=== PATIENT | female | born 1990 | race Caucasian/White ===

== ENCOUNTER 2018-01-22 06:43 | Inpatient (IN) ==
[2018-01-24] MEDS ORDERED: CALCIUM CARBONATE Chewable 500mg TABLET PO PRN (17:50)
[2018-01-24] MEDS ORDERED: ACETAMINOPHEN 500 MG TABLET PO PRN (17:50)
[2018-01-24] MEDS ORDERED: METHYLERGONOVINE 0.2 MG/ML INJECTION IM PRN (17:50)
[2018-01-24] MEDS ORDERED: CARBOPROST 250 MCG/ML INJECTION IM PRN (17:50)
[2018-01-24] MEDS ORDERED: LIDOCAINE 1% (10mg/ml) 2mL INJ PF SDV ID PRN (17:50)
[2018-01-24] MEDS ORDERED: MAG-AL + SIM ORAL LIQUID 30ml PO PRN (17:50)
[2018-01-24] MEDS ORDERED: ZOLPIDEM 5 MG TABLET PO PRN ×2 (17:52→18:48)
[2018-01-24] MEDS ORDERED: SALINE FLUSH 10ml SYRINGE IV PRN (17:52)
[2018-01-24] MEDS ORDERED: HYDROCODONE/APAP 5mg/325mg TABLET PO PRN ×2 (17:52→18:48)
[2018-01-24 20:35] VITALS: BMI 31.2
[2018-01-24] MEDS ORDERED: DiphenhydrAMINE 25 MG CAPSULE PO PRN (23:40)
[2018-01-25] MEDS ORDERED: OXYTOCIN DRIP 30 UNIT/500 ML ML IV PRN ×2 (02:44→13:36)
[2018-01-25] MEDS: LR 1,000 ML IV PRN ×2 (05:42→08:26)
[2018-01-25] MEDS ORDERED: D5LR 1,000 ML IV PRN (06:00)
--- NOTE | 2018-01-25 07:44 | Anesthesia Preoperative Report ---
Anesthesia Epidural/Spinal Rec - Date and Time Date: 01/25/18 Procedure: Labor Epidural Plan: Epidural - Vital Signs Vital Signs: Temperature 98 F 01/24/18 20:11 Pulse Rate 82 01/24/18 20:11 Blood Pressure 110/72 01/24/18 20:11 Pulse Oximetry 98 01/24/18 20:11 NPO since: 01/25/16 2400 /Para: P:0 Height and Weight: 65 inch 80 kg - Medictaions & Allergies Inpatient Medications: Current Medications Acetaminophen (Tylenol) 500 - 1,000 mg PO Q4H PRN PRN Reason: Pain Hydrocodone Bitart/Acetaminophen ([place] 5/325) 1 - 2 tab PO Q4H PRN PRN Reason: Pain Hydrocodone Bitart/Acetaminophen ([place] 5/325) 1 - 2 tab PO Q4H PRN PRN Reason: Pain Al Hydroxide/Mg Hydroxide (Maalox Plus) 30 ml PO Q3H PRN PRN Reason: Indigestion Calcium Carbonate (Tums) 500 - 1,000 mg PO Q2H PRN PRN Reason: Indigestion Carboprost Tromethamine (Hemabate) 250 mcg IM O PRN PRN Reason: .Downtime Diphenhydramine HCl (Benadryl) 25 - 50 mg PO HS PRN PRN Reason: Itching Last Admin: 01/24/18 23:42 Dose: 50 mg Lactated Ringer's (Lactated Ringers) 1,000 mls @ 999 mls/hr IV .Q1H1M PRN Last Admin: 01/25/18 05:42 Dose: 999 mls/hr Dextrose/Lactated Ringer's (Dextrose 5%-Lactated Ringers) 1,000 mls @ 125 mls/ hr IV .Q8H PRN PRN Reason: Labor Last Admin: 01/25/18 05:41 Dose: 125 mls/hr Oxytocin (Pitocin Drip) 30 unit in 500 mls @ 2 mls/hr IV .Q24H PRN; Protocol PRN Reason: Induction/Augmentation Last Admin: 01/25/18 05:40 Dose: 2 mls/hr Lidocaine HCl (Xylocaine-Mpf 1% Vial) 0.2 mg ID O PRN PRN Reason: IV Start Methylergonovine Maleate (Methergine) 0.2 mg IM O PRN Misoprostol (Cytotec) 800 mcg RI ONCE PRN Sodium Chloride (Iv Flush) 10 - 80 ml IV PRN PRN PRN Reason: Flushing Zolpidem Tartrate (Ambien) 5 mg PO O PRN PRN Reason: Insomnia Zolpidem Tartrate (Ambien) 5 mg PO O PRN PRN Reason: Insomnia Allergies/Adverse Reactions: Allergies Allergy/AdvReac Type Severity Reaction Status Date / Time No Known Allergies Allergy Verified 12/26/17 15:26 - Home Medications Home Medications: Home Medications Medication Instructions Recorded Confirmed Type Vitamins 12/26/17 History Zyrtec DAILY 12/26/17 History - Medical History Respiratory: Reports: Other Gastrointestional: Reports: Gastroesophageal Reflux Disease Other History: Reports: Now - Surgical History HEENT Surgeries: Reports: Other (wisdom teeth ) Surgical History: wisdom teeth Anesthesia Reactions: None Hx Family Anesthesia Reaction: No History of Motion Sickness: No - Social History Smoking Status: Never smoker Substance Use Type: does not use Alcohol Intake Frequency: does not drink - Pertinent Findings Lab Data: CBC and BMP 01/24/18 18:02 - Physical Exam Respiratory Exam: lungs clear Cardiovascular Exam: regular rate and rhythm - Airway Assessment Mallampati Score: II TMD: 2 Fingerbreadths Neck Extension: good Overall Assessment: no airway concerns - ASA ASA Score: 1 - Discussion Discussion: Discussed risks/options/alternatives of anesthesia and questions answered. Patient consents. Nursing pain assessment noted. Anesthesia Discussion: spouse (discussed risks and benefits of epidural placement. pt agrees to proceed) Attestation Statement: Prior to the delivery of any anesthetic medication, I examined the patient, developed the plan, obtained the patient's consent and discussed the risk and benefits of the procedure with the patient/guardian.
[2018-01-25] MEDS ORDERED: ROPIVACAINE 1% 10MG/ML INJ 200 MG, SUFentanil 50 MCG in NS 100 ML EPI PRN (08:21)
[2018-01-25] MEDS ORDERED: DiphenhydrAMINE 50 MG/ML INJECTION IVP PRN (08:21)
[2018-01-25] MEDS ORDERED: ONDANSETRON 4 MG/2 ML INJECTION IVP PRN (08:21)
[2018-01-25] MEDS ORDERED: NALOXONE 0.4 MG/ML INJECTION IVP PRN (08:21)
[2018-01-25] MEDS ORDERED: HYDROCORTISONE 2.5% CREAM 30gm RECTALLY PRN (13:36)
[2018-01-25] MEDS ORDERED: HYDROCODONE/APAP 5mg/325mg TABLET PO PRN (13:36)
[2018-01-25] MEDS ORDERED: ACETAMINOPHEN 500 MG TABLET PO PRN ×2 (13:36→14:00)
[2018-01-25] MEDS ORDERED: DiphenhydrAMINE 25 MG CAPSULE PO PRN (13:36)
[2018-01-25] MEDS ORDERED: SALINE FLUSH 10ml SYRINGE IV PRN (13:36)
[2018-01-25] MEDS ORDERED: MAG-AL + SIM ORAL LIQUID 30ml PO PRN (13:36)
[2018-01-25] MEDS ORDERED: OXYTOCIN DRIP 30 UNIT/500 ML ML IV SCH (13:36)
[2018-01-25] MEDS ORDERED: CALCIUM CARBONATE Chewable 500mg TABLET PO PRN (13:36)
--- NOTE | 2018-01-25 14:36 | Labor and Delivery Note ---
DATE OF DELIVERY: 01/25/2018 DELIVERY NOTE Melina is a 27-year-old, G1, P0, who presented to the hospital at 40 weeks 2 days estimated gestational age for [place] bulb ripening and Pitocin induction secondary to postdates. After [address], the [place] bulb did fall out on its own last night. This morning Pitocin was started and the patient did proceed into labor uneventfully. heart tones were reassuring throughout the course of labor. When patient was at 5 cm, amniotomy was performed and clear fluid was noted. Approximately an hour later the patient was complete. She was able to push very effectively. The head was delivered, at which time a double nuchal cord was noted and was reduced x 2. Anterior and posterior shoulders were then delivered uneventfully and baby was vigorous immediately upon delivery. Baby was placed on mother's abdomen for further stimulation by the nursing staff. After cord pulsation ceased, I doubly clamped the cord and the cord was cut by the father of the baby. Placenta delivered spontaneously. The uterus was palpated and found to be firm. The periurethral, labial, perineal and vaginal and cervical areas were then evaluated for lacerations. A small second-degree perineal laceration was noted. A right periurethral that was fairly large but not bleeding was noted. The second-degree perineal laceration was repaired in the usual fashion using 2-0 Monocryl. The right periurethral was reapproximated with a subcuticular stitch using 3-0 chromic. The patient tolerated the entire procedure well and both mother and baby are doing well at the time of this dictation. The baby's name is Anthony Arrieta. Birthweight is 3516 grams, 7 pounds 12 ounces. Apgars were 7/9/9. MTDD
[2018-01-25] MEDS: IBUPROFEN 800 MG TABLET PO PRN (17:50)
[2018-01-26] MEDS: PRENATAL VITAMIN TABLET PO SCH ×2 (02:10→10:21)
[2018-01-26] MEDS: IBUPROFEN 800 MG TABLET PO PRN (05:04)
[2018-01-26 07:57] VITALS: RESP 16; TEMP 97.9; O2SAT 100
[2018-01-26] MEDS ORDERED: DOCUSATE CALCIUM 240 MG CAPSULE PO SCH (09:00)
--- NOTE | 2018-01-26 11:11 | Anesthesia Postoperative Note ---
- Date and Time Date: 01/26/18 Time: 11:10 - Status Patient Participated in Evaluation: Patient Participated in Person Vital Signs: Temperature 97.9 F 01/26/18 07:27 Pulse Rate 82 01/26/18 07:27 Respiratory Rate 16 01/26/18 07:27 Blood Pressure 110/61 01/26/18 07:27 Pulse Oximetry 100 01/26/18 07:27 Respiratory Function: Airway Patent Cardiovascular Function: Regular Pulse EKG: Sinus Rhythm Mental Status: Alert and Oriented Pain Intensity: 0 Hydration: Taking PO Fluids Complications During Recover: None Apparent - Follow-Up Instructions Instructions: Per Surgeon
[2018-01-26] MEDS ORDERED: RHO(D) IMMUNE GLOBULIN 300 MCG/2 ML INJECTION IM ONE (13:15)
[2018-01-26] MEDS ORDERED: RHO(D) IMMUNE GLOBULIN 300 MCG/2 ML INJECTION IVP ONE (13:15)
--- NOTE | 2018-01-26 13:42 | Progress Note ---
OB PP Progress Note Free Text - Date Date: 01/26/18 - Progress Note Progress Note: Pt doing well. Eren PO/Amb/Void. Min lochia. BF going fairly well, has pumped some, but also getting baby to breast. Pt feeling ready to go home today. O: AF/VSS FF, below umb, no pedal edema A/P: 27 yo PPD #1 s/p w/ 2nd deg perineal & 1st deg right periurethral lac repair, doing well Home today w/ rx for motrin. F/u w/ & in 6 week in my office for PPV.
[2018-01-26 15:03] VITALS: BP 112/72; PULSE 89
== END 2018-01-26 16:00 | disposition home or self-care (01) | DRG 775 ==
LOC: MC 01-24 17:45
PROVIDERS: ADMIT Family Medicine; ATTEND Family Medicine